=== PATIENT | female | born 1990 | race Caucasian/White ===

== ENCOUNTER 2018-01-01 23:15 | Inpatient (IN) | payer SELFPAY ==
[2018-01-01 23:58] LABS: ABS Basophils 0 10^3/ul (0-0.2); ABS Eosinophils 0.2 10^3/ul (0-0.6); ABS Lymphocytes 3.2 10^3/ul (1.0-4.8); ABS Monocytes 0.4 10^3/ul (0-0.8); ABS Neutrophils 4.3 10^3/ul (1.5-7.7); ABS Nucleated RBC 0 10^3/ul; Eosinophil % 2.1 % (0-6); Hematocrit 37 % (35-47); Hemoglobin 12.6 g/dl (12.0-16.0); Lymphocyte % 39.6 % (25-47); Mean Corpuscular HGB Conc 34 g/dl (31-36); Mean Corpuscular Hemoglobin 29 pg (27-31); Mean Corpuscular Volume 86 fL (80-97); Mean Platelet Volume 6.9 um3 (7.4-10.4); Nucleated Red Blood Cells % 0.1; Platelet Count 330 10^3/ul (150-450); Red Blood Count 4.33 10^6/ul (4.00-5.40); Red Cell Distribution Width 12 % (10.5-15); White Blood Count 8.1 10^3/ul (3.5-10.8)
[2018-01-02 00:02] LABS: Urine Appearance Clear; Urine Blood Negative (Negative); Urine Color Straw; Urine Ketones Negative (Negative); Urine Protein Negative (Negative); Urine Specific Gravity 1.002 (1.010-1.030); Urine Urobilinogen Negative (Negative)
[2018-01-02 00:09] LABS: EGFR Non-African American 104.6 (>60)
[2018-01-02] MEDS ORDERED: Tetan/Diph/Pertus SYR(Tdap)* 0.5 ML SYR(BOOSTRIX) use SYR IM ONE (00:24)
--- NOTE | 2018-01-02 06:28 | ED ---
Damaso Ramirez Tiffany, scribed for Ellis Guerrero MD on 01/02/18 at 0047 . Psychiatric Complaint - HPI Summary HPI Summary: 27 year old F presenting to [facility] complains of worsening suicidal ideation for the last 3 weeks. Symptoms aggravated by nothing. Symptoms alleviated by nothing. Patient reports superficial lacerations to the left arm. She is tearful but cooperative. She can't remember when her last tetanus shot was. Patient moved to [place] 3 years ago from [place]. 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 She lives with her boyfriend and two roommates. She has no therapist. Hx suicidal attempt. Denies hx inpatient psych treatment. No hx cutting. - History Of Current Complaint Chief Complaint: EDMentalHealth Time Seen by Provider: 01/02/18 00:14 Hx Obtained From: Patient Onset/Duration: Lasting Weeks - 3, Still Present Timing: Constant Aggravating Factor(s): Nothing Alleviating Factor(s): Nothing Has Suicidal: Reports: Thoughts, Has Prior Attempt(s) - Allergies/Home Medications Allergies/Adverse Reactions: Allergies Allergy/AdvReac Type Severity Reaction Status Date / Time Sulfa (Sulfonamide Allergy Unknown Verified 01/01/18 23:22 Antibiotics) Reaction Details Home Medications: Home Medications Unobtainable 01/02/18 [History Confirmed 01/02/18] PMH/Surg Hx/FS Hx/Imm Hx Previously Healthy: No - hx rosation Psychiatric History: Reports: Hx Depression, Hx Suicide Attempt - Surgical History Surgery Procedure, Year, and Place: none Infectious Disease History: No Infectious Disease History: Denies: Traveled Outside the [place] in Last 30 Days - Family History Known Family History: Positive: Other - depression, anxiety - Social History Alcohol Use: Occasionally Hx Substance Use: No Substance Use Type: Reports: None Hx Tobacco Use: Yes - reports vaping Smoking Status (MU): Former Smoker Review of Systems Positive: Other - superficial lacerations to left arm Positive: Other - suicidal ideation, she is tearful but cooperative All Other Systems Reviewed And Are Negative: Yes Physical Exam - Summary Physical Exam Summary: Appearance: Well appearing, no pain distress Skin: There is multiple horizontal abrasions to the left forearm that is not actively bleeding. There is no breaking of the skin. Head/face: facial redness from rosation Eyes: EOMI, KEKE ENT: normal Neck: supple, non-tender Respiratory: CTA, breath sounds present Cardiovascular: RRR, pulses symmetrical Abdomen: non-tender, soft Bowel Sounds: present Musculoskeletal: normal, strength/ROM intact Neuro: normal, sensory motor intact, A&Ox3 Triage Information Reviewed: Yes Vital Signs On Initial Exam: Initial Vitals Temp Pulse Resp BP Pulse Ox 98.9 F 106 20 138/107 97 01/01/18 23:17 01/01/18 23:17 01/01/18 23:17 01/01/18 23:17 01/01/18 23:17 Vital Signs Reviewed: Yes Diagnostics - Vital Signs Vital Signs Temp Pulse Resp BP Pulse Ox 01/01/18 23:17 98.9 F 106 20 138/107 97 - Laboratory Lab Results: Lab Results 01/01/18 01/01/18 01/01/18 Range/Units 23:39 23:39 23:53 WBC 8.1 (3.5-10.8) 10^3/ul RBC 4.33 (4.00-5.40) 10^6/ul Hgb 12.6 (12.0-16.0) g/dl Hct 37 (35-47) % MCV 86 (80-97) fL MCH 29 (27-31) pg MCHC 34 (31-36) g/dl RDW 12 (10.5-15) % Plt Count 330 (150-450) 10^3/ul MPV 6.9 L (7.4-10.4) um3 Neut % (Auto) 53.3 (38-83) % Lymph % (Auto) 39.6 (25-47) % [place] % (Auto) 4.5 (0-7) % Eos % (Auto) 2.1 (0-6) % Baso % (Auto) 0.5 (0-2) % Absolute Neuts (auto) 4.3 (1.5-7.7) 10^3/ul Absolute Lymphs (auto) 3.2 (1.0-4.8) 10^3/ul Absolute Monos (auto) 0.4 (0-0.8) 10^3/ul Absolute Eos (auto) 0.2 (0-0.6) 10^3/ul Absolute Basos (auto) 0 (0-0.2) 10^3/ul Absolute Nucleated RBC 0 10^3/ul Nucleated RBC % 0.1 Sodium 139 (135-145) mmol/L Potassium 3.8 (3.5-5.0) mmol/L Chloride 105 (101-111) mmol/L Carbon Dioxide 26 (22-32) mmol/L Anion Gap 8 (2-11) mmol/L BUN 6 (6-24) mg/dL Creatinine 0.68 (0.51-0.95) mg/dL Est GFR ( Amer) 126.6 (>60) Est GFR (Non-Af Amer) 104.6 (>60) BUN/Creatinine Ratio 8.8 (8-20) Glucose 103 H (70-100) mg/dL Calcium 9.1 (8.6-10.3) mg/dL Total Bilirubin 0.20 (0.2-1.0) mg/dL AST 15 (13-39) U/L ALT 10 (7-52) U/L Alkaline Phosphatase 43 (34-104) U/L Total Protein 7.9 (6.4-8.9) g/dL Albumin 4.8 (3.2-5.2) g/dL Globulin 3.1 (2-4) g/dL Albumin/Globulin Ratio 1.5 (1-3) TSH Pending Beta HCG, Quant < 0.60 mIU/mL Urine Color Straw Urine Appearance Clear Urine pH 6.0 (5-9) Ur Specific [place] 1.002 L (1.010-1.030) Urine Protein Negative (Negative) Urine Ketones Negative (Negative) Urine Blood Negative (Negative) Urine Nitrate Negative (Negative) Urine Bilirubin Negative (Negative) Urine Urobilinogen Negative (Negative) Ur Leukocyte Esterase Negative (Negative) Urine Glucose Negative (Negative) Salicylates < 2.50 (<30) mg/dL Acetaminophen < 15 mcg/mL Serum Alcohol 289 H (<10) mg/dL Result Diagrams: 01/01/18 23:39 01/01/18 23:39 Lab Statement: Any lab studies that have been ordered have been reviewed, and results considered in the medical decision making process. - EKG 00:45 Cardiac Rate: NL - 97 BPM EKG Rhythm: Sinus Rhythm EKG Interpretation: Nml axis. Nml interval. Nonspecific ST. Course/Dx - Course Course Of Treatment: Patient with high alcohol level likely exacerbating her chronic depression. She has self injury today consisting of very superficial abrasions. Tetanus was updated. There are no wounds requiring repair. She will require sobering prior to mental health evaluation. She was observed through the night without any deterioration. - Differential Dx/Clinical Impression Provider Diagnosis: Alcohol intoxication, Substance induced mood disorder Discharge - Sign-Out/Discharge Documenting (check all that apply): Sign-Out Patient Signing out patient TO: Medhat Anderson - Awaiting MHE, pending dispo - Discharge Plan Condition: Fair Referrals: No Primary Care Phys,NOPCP [Primary Care Provider] - - Billing Disposition and Condition Condition: FAIR The documentation as recorded by the Damaso santos Tiffany accurately reflects the service I personally performed and the decisions made by , Ellis Guerrero MD.
[2018-01-02] MEDS ORDERED: Ibuprofen TAB* 600 MG PO ONE (10:34)
--- NOTE | 2018-01-02 12:17 | PN ---
ED Flex Patient Progress Note Date of Service: 01/02/18 Subjective: This is a 27 year-old F who is pending admission to [facility] secondary to suicidal ideation, plans to cut her writs or to overdose and inability to contract for safety if discharged. Pt maintains that she is suicidal. Objective: Alert, oriented time 4, good eye contact, calm, cooperative, constricted range of affect, euthymic mood, she endorses SI, denies HI or urges for sib. Assessment: Alcohol use disorder; r/o MDD. Plan: Pending psychiatric admit here in the [facility] when bed becomes available. Vital Signs Temp Pulse Resp BP Pulse Ox 98.1 F 95 16 124/84 100 01/02/18 08:27 01/02/18 08:27 01/02/18 08:27 01/02/18 08:27 01/02/18 08:27 Lab Results - Entire Visit 01/01/18 01/01/18 01/01/18 23:53 23:53 23:39 WBC RBC Hgb Hct MCV MCH MCHC RDW Plt Count MPV Neut % (Auto) Lymph % (Auto) [place] % (Auto) Eos % (Auto) Baso % (Auto) Absolute Neuts (auto) Absolute Lymphs (auto) Absolute Monos (auto) Absolute Eos (auto) Absolute Basos (auto) Absolute Nucleated RBC Nucleated RBC % Sodium 139 Potassium 3.8 Chloride 105 Carbon Dioxide 26 Anion Gap 8 BUN 6 Creatinine 0.68 Est GFR ( Amer) 126.6 Est GFR (Non-Af Amer) 104.6 BUN/Creatinine Ratio 8.8 Glucose 103 H Calcium 9.1 Total Bilirubin 0.20 AST 15 ALT 10 Alkaline Phosphatase 43 Total Protein 7.9 Albumin 4.8 Globulin 3.1 Albumin/Globulin Ratio 1.5 TSH 3.16 Beta HCG, Quant < 0.60 Urine Color Straw Urine Appearance Clear Urine pH 6.0 Ur Specific [place] 1.002 L Urine Protein Negative Urine Ketones Negative Urine Blood Negative Urine Nitrate Negative Urine Bilirubin Negative Urine Urobilinogen Negative Ur Leukocyte Esterase Negative Urine Glucose Negative Salicylates < 2.50 Urine Opiates Screen None detected Acetaminophen < 15 Ur Barbiturates Screen None detected Ur Phencyclidine Scrn None detected Ur Amphetamines Screen None detected U Benzodiazepines Scrn None detected Urine Cocaine Screen None detected U Cannabinoids Screen None detected Serum Alcohol 289 H 01/01/18 23:39 WBC 8.1 RBC 4.33 Hgb 12.6 Hct 37 MCV 86 MCH 29 MCHC 34 RDW 12 Plt Count 330 MPV 6.9 L Neut % (Auto) 53.3 Lymph % (Auto) 39.6 [place] % (Auto) 4.5 Eos % (Auto) 2.1 Baso % (Auto) 0.5 Absolute Neuts (auto) 4.3 Absolute Lymphs (auto) 3.2 Absolute Monos (auto) 0.4 Absolute Eos (auto) 0.2 Absolute Basos (auto) 0 Absolute Nucleated RBC 0 Nucleated RBC % 0.1 Sodium Potassium Chloride Carbon Dioxide Anion Gap BUN Creatinine Est GFR ( Amer) Est GFR (Non-Af Amer) BUN/Creatinine Ratio Glucose Calcium Total Bilirubin AST ALT Alkaline Phosphatase Total Protein Albumin Globulin Albumin/Globulin Ratio TSH Beta HCG, Quant Urine Color Urine Appearance Urine pH Ur Specific [place] Urine Protein Urine Ketones Urine Blood Urine Nitrate Urine Bilirubin Urine Urobilinogen Ur Leukocyte Esterase Urine Glucose Salicylates Urine Opiates Screen Acetaminophen Ur Barbiturates Screen Ur Phencyclidine Scrn Ur Amphetamines Screen U Benzodiazepines Scrn Urine Cocaine Screen U Cannabinoids Screen Serum Alcohol
--- NOTE | 2018-01-02 22:17 | ED ---
Nestor Ramirez Jade, scribed for Alfred Bates on 01/02/18 at 2213 . Progress - Progress Note Progress Note: Pt is being admitted to the hospital for depression and suicidal ideation. - Consult/PCP Time Called: 08:29 Course/Dx - Diagnoses Provider Diagnoses: Depression, Suicidal ideation Discharge - Sign-Out/Discharge Documenting (check all that apply): Discharge/Admit/Transfer - Admit, Receiving Sign-Out Receiving patient FROM: Ellis Guerrero - Discharge Plan Condition: Fair Disposition: ADMITTED TO [facility] Referrals: [facility] [Outside] The documentation as recorded by the Nestor santos Jade accurately reflects the service I personally performed and the decisions made by Jana espinoza Emmanuel.
[2018-01-03] MEDS ORDERED: Acetaminophen TAB* 325 MG PO PRN (01:43)
[2018-01-03] MEDS ORDERED: Al Hydrox/Mg Hydrox/Simet LIQ* 30 ML UDC PO PRN (01:43)
[2018-01-03] MEDS ORDERED: Mouth Piece, Nicotine* 1 EACH CARTRIDGE INH SCH (01:43)
[2018-01-03] MEDS: Nicotine GUM* 2 MG PO PRN ×4 (09:36→21:23)
[2018-01-03] MEDS: Vitamin THERAPEUTIC TAB PO SCH (09:36)
[2018-01-03] MEDS ORDERED: Mouth Piece, Nicotine* 1 EACH CARTRIDGE ONE (10:42)
[2018-01-03] MEDS: Nicotine Inhaler* 10 MG AMP INH PRN ×3 (10:43→20:21)
[2018-01-03] MEDS ORDERED: Zolpidem TAB* 5 MG PO ONE (18:03)
--- NOTE | 2018-01-03 19:52 | HP ---
HISTORY AND PHYSICAL: DATE OF ADMISSION: 01/02/18 IDENTIFYING DATA: Nneka is a 27-year-old white female with no prior history of psychiatric hospitalizations or treatments, was brought into the emergency room by her partner due to an attempt to cut her arm with an intention to commit suicide. CHIEF COMPLAINT: "I have been depressed, anxious, and suicidal for the last few weeks." HISTORY OF PRESENT ILLNESS: Nneka reports that she has been depressed off and on for a while, which got worse during the last 3 weeks. She has been feeling sad, crying frequently, lost some interest in social activities, feels fearful and anxious all the time even at home. She also feels helpless, hopeless, worthless, and guilty. Feels guilty because of the way her life has become now. She has also been drinking at least 3 days out of a week somewhere between 2 to 5 beers. Yesterday, she drank 4 or 5 beers and lost control of her behavior. She had tried to cut her arm with a kitchen knife. Fortunately, the knife was not sharp enough, so she just had few superficial cuts on her left arm. Her partner was frightened and picked her up to bring her to the emergency room, where she was found to be intoxicated with a blood alcohol level of close to 300. At this time, she is visibly depressed and sad but denies any current thoughts of hurting herself. She is also denying any manic or hypomanic symptoms; however, she reports that there are times that she feels very happy. Her energy level is high, motivation is very high. Her mind races and she has difficulty falling asleep, but that does not last that long and she crashes into her depressive episode. She never experienced any hallucinations or delusions. She was unable to identify any new or added stress. Reports that her relationship is going great. She has good financial support, place to stay , and has a partner who is very supportive. PAST PSYCHIATRIC HISTORY: Unremarkable. PAST MEDICAL HISTORY: Unremarkable. ALLERGIES: SULFA DRUGS. SUBSTANCE ABUSE HISTORY: As mentioned in the HPI, she drinks 3 days out of a week and drinks a couple of beers to 5 beers and the beers have higher alcohol content than the normal regular beers available in the market. She denies ever getting seriously intoxicated or have blackouts. She reports that she drinks at home with her partner mostly and goes to sleep after she drinks. However, she does not really sleep very well and wakes up frequently the night that she is drinking. FAMILY HISTORY: Remarkable for her mother who was diagnosed with schizophrenia and in an institution in [place]. She has an older brother who is normal. Denies any other family members who may have mental illness. 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 She is currently involved in a significant relationship with her current boyfriend who is very supportive of her. They live in a house with 2 other roommates who could be loud at times when they are drunk. She denies any legal problems. PHYSICAL EXAMINATION GENERAL: Nneka does not appear to be in any kind of physical distress, although she appears very nervous and tremulous. Her appearance is fairly groomed, appropriately dressed, healthy-appearing white female, in no distress at the time of examination. VITAL SIGNS: Today shows a blood pressure of 130/90, pulse 69, temperature 97.7 , respirations 20, O2 sat 100% on room air. HEENT: Head: Atraumatic, normocephalic, long hair. Eyes: EOMI, PERRLA. Ears : Clean ear canals with intact eardrum. NECK: Supple. Midline trachea. No lymphadenopathy or thyromegaly. CHEST: Normal breath sounds bilaterally. No added sounds or abnormal sounds. CARDIOVASCULAR: Regular heart rate and rhythm. S1 and S2 only. No gallops or murmurs. Pulses present in all 4 extremities. ABDOMEN: Flat, soft, nontender. No organomegaly. Positive bowel sounds in all quadrants. MUSCULOSKELETAL: Normal strength. ROM intact. NEUROLOGICAL: Grossly normal. Cranial nerves II through XII. She is alert and oriented to time, place, and person. LABORATORY DATA: Labs included CBC with differential, CMP, and tox screen. CBC shows a WBC of 8.1, hemoglobin 12.6, hematocrit 37, platelet count 330,000. CMP shows serum sodium level of 139, potassium 3.8. Chloride 105, carbon dioxide 26, BUN 6, creatinine 0.68. GFR 104.6. Rest of the report is within normal range. Urinalysis unremarkable. Tox screen shows a serum alcohol level of 289 at the time when she was in the emergency room. IMAGING: EKG: Sinus rhythm. MENTAL STATUS EXAM: Nneka is a healthy-appearing, average height white female who is appropriately dressed and fairly groomed with good personal hygiene. She is alert and oriented to time, place, and person. Makes fair eye contact. She is tearful during the entire evaluation. Describes her mood as sad. Observed affect is dysphoric and tearful. Speech is normal in all spheres. Thought process is logical and goal directed. Thought content is devoid of any delusions or obsessions. She denies any suicidal or homicidal ideations at this time. Also, denies any perceptual disturbances. Her intelligence appears to be average as evidence by her vocabulary, education, and fund of knowledge. Memory functions are intact in all spheres. Insight and judgment appears to be fair to good. SUMMARY: This 27-year-old female with no prior history of treatment for mental illness, but a positive family history of mental illness in her mother who has been experiencing mood symptoms for quite a while, mostly depressive symptoms with intermittent mild to moderate hypomanic symptoms, has been more depressed lately and tried to hurt herself last evening with an intention to commit suicide. She has also been drinking at least 3 days out of the week, 2 to 5 beers with high alcohol content. DIAGNOSTIC IMPRESSION: MENTAL HEALTH DIAGNOSIS: Unspecified mood disorder, rule out major depressive disorder, rule out bipolar disorder. PHYSICAL HEALTH DIAGNOSIS: None. TREATMENT RECOMMENDATIONS: Nneka will remain hospitalized on behavioral health science unit for her safety, diagnostic clarification, and stabilization of current depressive episode. Her code status will be full. Supportive, milieu, individual, and group therapy will be initiated. I have discussed multiple treatment options for her with risks, benefits, and alternatives to all of them. She is willing to consider taking medication to help her mood and depression. Hence, I am going to prescribe her low doses of Zoloft and monitor her closely to see if that switches her towards hypomania or sebas and rest of the psychopharmacological management will be deferred to her assigned psychiatrist on the unit. If she is willing and her symptoms worsen towards hypomania or sebas, I will recommend lithium if she can stop drinking, otherwise Depakote in the future. [id number]/[facility] #: [id number] HELEN HAYES HOSPITALRavinder
[2018-01-04] MEDS: Vitamin THERAPEUTIC TAB PO SCH (08:32)
[2018-01-04] MEDS: Sertraline* 25 MG TAB PO SCH (08:32)
[2018-01-04] MEDS: Nicotine GUM* 2 MG PO PRN ×7 (08:33→23:15)
[2018-01-04] MEDS: Nicotine Inhaler* 10 MG AMP INH PRN ×7 (08:33→23:15)
[2018-01-04] MEDS ORDERED: diPHENhydraMINE PO* 25 MG ONE (23:17)
[2018-01-04] MEDS ORDERED: diPHENhydraMINE PO* 25 MG PO PRN (23:22)
[2018-01-05] MEDS: Sertraline* 25 MG TAB PO SCH (08:38)
[2018-01-05] MEDS: Vitamin THERAPEUTIC TAB PO SCH (08:38)
[2018-01-05] MEDS: Nicotine Inhaler* 10 MG AMP INH PRN ×7 (08:39→23:55)
[2018-01-05] MEDS: Nicotine GUM* 2 MG PO PRN ×7 (08:39→23:55)
--- NOTE | 2018-01-05 11:57 | PN ---
MHU: Group Therapy Note - Service Type Service Type: [id number] Group Psychotherapy - Cognitive Behavioral Group Therapy ( CBT):Patient was attentive and participatory in CBT programming this morning, and remained in good behavioral control. Patient expressed positive insights regarding relevant treatment interventions and goals.
--- NOTE | 2018-01-05 13:02 | PN ---
Subjective - Subjective Date of Service: 01/05/18 Service Type: [id number] Hosp care 25 min moderate complexity Subjective: Jocelin is pleasant to talk to and can describe her disbelief that she tried to harm herself very well. She acknowledges that she had too much to drink and that she stopped herself before seriously cutting herself. She finds that to be reassuring, that she was able to stop herself and that it shows insight that she needed help. We discussed the possibility of bipolar disorder, but she does not seem to fit those criteria as she has never been manic and doesn't have manic symptoms. Still, she is bright and energetic on the surface. We talk about additional medication, such as increasing the dose of Zoloft. Objective - Appearance Appearance: Healthy Appearing Dysmorphic Features: No Hygiene: Normal Grooming: Well Kept - Behavior Psychomotor Activities: Normal Exhibits Abnormal Movement: No - Attitude and Relatedness Attitude and Relatedness: Well Related Eye Contact: Good - Speech Quality: Unpressured Latencies: Normal Quantity: Appropriate - Mood Patient's Decription of Mood: "Good" - Affect Observed Affect: Good Affect Consistent with: Euthymia - Thought Process Patient's Thought Process: Coherent Thought Content: No Passive Wish, No Suicidal Planning, No Homicidal Ideation, No Paranoid Ideation - Sensorium Experiencing Hallucinations: No, Sensorium is Clear Type of Hallucinations: Visual: No, Auditory: No, Command: No - Level of Consciousness Level of Consciousness: Alert Orientation: Yes Intact, Yes Orientated to Time, Yes Orientated to Place, Yes Orientated to Person - Impulse Control Impulse Control: Intact - Insight and Judgement Insight and Judgement: Good - Group Participation Particating in Group Activities: Yes - Medication Management Medication Management Adherence: Yes - Additional Observations Comments: Jocelin is doing fine today. She shows good insight into what brought her here. Generally, she is doing well, demonstrating excellent thought processes and showing regret for her prior actions. Assessment - Assessment Merits Inpatient Hospitalization: For Immediate Safety, For Stabilization Inpatient DSM-V Dx: F33.1 Clinical Impression: Jocelin is a 27-year-old woman who has a full tiime job she enjoys and a boyfriend she has a good relationship with. She discusses that stressors at home are difficult for her to manage and being here in the hospital has made that clear to her. She anticipates making new choices in the future that will decrease stress, improve mood, and increase higher quality sleep. Plan - Plan Treatment Plan: Name: JOCELIN KIRKPATRICK Birthdate: 1990 [id number] Jocelin will take Ativan 0.5 mg at bedtime PRN insomnia. We will increase Zoloft to 50 mg. She will work on improving her home situation so she no longer has to live with roommates other than her boyfriend. Continued Medication Management: Different Medication Medications: Current Medications Acetaminophen (Tylenol Tab*) 650 mg PO Q4H PRN PRN Reason: PAIN or TEMP > 101 F Al Hydrox/Mg Hydrox/Simethicone (Maalox Plus*) 30 ml PO Q4H PRN PRN Reason: INDIGESTION Device (Nicotine Mouth Piece*) 1 each INH .[facility] Last Admin: 01/03/18 10:44 Dose: 1 each Diphenhydramine HCl (Benadryl Po*) 25 mg PO BEDTIME PRN PRN Reason: INSOMNIA Multivitamins (Theragran Tab*) 1 tab PO DAILY [facility] Last Admin: 01/05/18 08:38 Dose: 1 tab Nicotine (Nicotine Inhaler*) 10 mg INH Q2H PRN PRN Reason: CRAVING Last Admin: 01/05/18 10:59 Dose: 10 mg Nicotine Polacrilex (Nicotine Gum*) 2 mg PO Q2H PRN PRN Reason: CRAVING Last Admin: 01/05/18 10:59 Dose: 2 mg Sertraline HCl (Zoloft*) 25 mg PO DAILY [facility] Last Admin: 01/05/18 08:38 Dose: 25 mg
[2018-01-05] MEDS ORDERED: Sertraline* 25 MG TAB PO ONE (13:15)
[2018-01-05] MEDS ORDERED: LORazepam TAB(*) 0.5 MG PO ONE (21:00)
[2018-01-06] MEDS: Vitamin THERAPEUTIC TAB PO SCH (08:09)
[2018-01-06] MEDS: Nicotine GUM* 2 MG PO PRN ×2 (08:10→10:21)
[2018-01-06] MEDS: Nicotine Inhaler* 10 MG AMP INH PRN ×2 (08:10→10:21)
[2018-01-06 08:22] VITALS: BP 126/85
[2018-01-06] MEDS ORDERED: Sertraline* 50 MG TAB PO SCH (09:00)
--- NOTE | 2018-01-06 20:28 | DS ---
CC: [facility]* DISCHARGE SUMMARY: DATE OF ADMISSION: 01/02/18 DATE OF DISCHARGE: 01/06/18 SUPERVISING PHYSICIAN: Jonn Lea MD* (dictated by Lainey Martinez NP). DIAGNOSIS: [place] I: Major depressive disorder, moderate, and anxiety disorder. CONDITION AT THE TIME OF DISCHARGE: Improved, psychiatrically cleared, stable. Participated in groups, social with peers. Her family is agreeable to discharge. She has done well here psychiatrically. She tolerated sertraline addition very well. She will be attending [facility]. MENTAL STATUS EXAMINATION: At the time of discharge, the patient is calm, cooperative, makes great eye contact. She is alert and oriented x3. Her grooming is good. Her speech pace is normal. Her thought processes are logical. She is not psychotic, not delusional. She denies AH, VH, SI, and HI. Insight and judgment are very good. She is willing to follow up and she is urged to see a therapist. DISCHARGE INSTRUCTIONS TO THE PATIENT: A. Medications: 1. Lorazepam 0.5 once at bedtime daily. 2. Sertraline 50 mg daily. B. Diet is regular. C. Activities: As tolerated. Nneka is a smoker, but she has declined a referral to the Smokers' Quitline at this time. There are no studies pending at the time of discharge. D. Followup care: She has appointments with [facility]. E. Substance abuse followup: Not indicated. HOSPITAL COURSE: Part A: Chief complaint: "I've been depressed, anxious and suicidal for the last few weeks." Nneka reports that she has been depressed off and on for a while, which got worse during the last 3 weeks. She has been feeling sad, crying frequently, lost some interest in social activities, feels fearful and anxious all the time even at home. She also feels helpless, hopeless, worthless, and guilty. Feels guilty because of the way her life has become now. She has also been drinking at least 3 days out of a week somewhere between 2 to 5 beers. Yesterday, she drank 4 or 5 beers and lost control of her behavior. She has tried to cut her arm with a kitchen knife. Fortunately, the knife was not sharp enough, so she just had the few superficial cuts on her left arm. Her partner was frightened and picked her up to bring her to the emergency room where she was found to be intoxicated with a blood level of close to 300. At this time, she is visibly depressed and sad, but denies any current thoughts of hurting herself. She is also denying any manic or hypomanic symptoms; however, she reports that there are times that she feels very happy. Her energy level is high, motivation is very high. Her mind races and she has difficulty falling asleep, but that does not last long as she crashes into her depressive episode. She never experienced any hallucinations or delusions. She was unable to identify any new or added stress. She reports that her relationship is going great. She has good financial support, a place to stay, and has a partner who is very supportive. Part B: Psychiatric treatment was rendered. The patient was admitted to the adult behavioral unit and placed on 15-minute checks for safety. Dorcas did well on the unit and went to groups. She interacted with peers well. She tolerated sertraline's addition and Ativan's addition at bedtime. There was a question of whether she had bipolar disorder. There is no history of manic episodes. In fact, some of the racing thoughts and higher energy can easily be attributed to anxiety disorder. She and her boyfriend were agreeable to discharge. There were no consults entered. She is much improved and she is eager to leave. LAINEY MARTINEZ, AJ [id number]/CPS #: [id number] K[place]LEY
[2018-01-06] MEDS ORDERED: LORazepam TAB(*) 0.5 MG PO ONE (21:00)
== END 2018-01-06 12:15 | disposition home or self-care (01) | DRG 885 ==
LOC: ED 23:15 → BSU 01-02 22:38
PROVIDERS: ADMIT Psychiatry & Neurology Psychiatry; ATTEND Psychiatry & Neurology Psychiatry
PROC: GZHZZZZ Group Psychotherapy (ICD-10-PCS; principal; 2018-01-05)
DX: F33.1 Major depressive disorder, recurrent, moderate (principal); S51.812A Laceration without foreign body of left forearm, initial encounter; G47.00 Insomnia, unspecified; F10.929 Alcohol use, unspecified with intoxication, unspecified; Y90.8 Blood alcohol level of 240 mg/100 ml or more; F41.9 Anxiety disorder, unspecified; Z91.5 Personal history of self-harm; Z88.2 Allergy status to sulfonamides; Z81.8 Family history of other mental and behavioral disorders; Z87.891 Personal history of nicotine dependence; X83.8XXA Intentional self-harm by other specified means, initial encounter; Y92.009 Unspecified place in unspecified non-institutional (private) residence as the place of occurrence of the external cause
CPT/HCPCS: 36415; 80053; 80061; 80307; 80320; 80329; 81003; 83036; 84443; 84702; 85025; 90715; 90853; 93005; 99222; 99232; 99284; A9270-GY; G0480

== ENCOUNTER 2018-12-18 16:15 | Emergency (ER) | payer SELFPAY ==
[2018-12-18 16:35] VITALS: BP 115/82
--- NOTE | 2018-12-18 16:40 | UC ---
Bite Injury/Animal HPI - HPI Summary HPI Summary: 28-year-old female who got bitten by a rat on her left and right index fingers while she was trying to clean out a house of a person who had rats "all over the place". 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 She basically came here for an antibiotic. At the time of the injury she did irrigate the wounds thoroughly with alcohol. - History of Current Complaint Chief Complaint: UCBiteInjury Stated Complaint: RAT BITE Time Seen by Provider: 12/18/18 16:37 Hx Obtained From: Patient Hx Last Menstrual Period: 12/18/18 ?: No Severity Currently: Mild Severity Initially: Mild Pain Intensity: 7 Onset/Duration: Sudden Onset, Other - Injury happened approximately 45 minutes prior to arrival. Type of Bite: Animal - The bite was from a rat that had some babies. 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 Has Animal Been Immunized?: No Character: Abrasion/Laceration - Very small lacerations on the left and right index fingers approximately 3 mm in length. Bleeding is controlled. Aggravating Factor(s): Nothing Alleviating Factor(s): Nothing Associated Signs And Symptoms: Positive: Negative Hx of Bite: Provoked by: - The rat was the female guarding baby rats. Animal Available for Observation: No Animal Control Notified: Yes - Allergies/Home Medications Allergies/Adverse Reactions: Allergies Allergy/AdvReac Type Severity Reaction Status Date / Time ibuprofen AdvReac See Comment Verified 12/18/18 16:31 Home Medications: Home Medications ALPRAZolam [Xanax] 3 mg PO DAILY PRN 12/18/18 [History Confirmed 12/18/18] Fluoxetine HCl [Prozac] 20 mg PO DAILY 12/18/18 [History Confirmed 12/18/18] [place] Carbonate ER (NF) 900 mg PO DAILY 12/18/18 [History Confirmed 12/18/18] Quetiapine Fumarate [Seroquel 50 mg tab] 1 tab PO DAILY PRN 12/18/18 [History Confirmed 12/18/18] PMH/Surg Hx/FS Hx/Imm Hx Previously Healthy: Yes - patient has had rabies immunization as part of her employment - Surgical History Surgical History: None Surgery Procedure, Year, and Place: none - Family History Known Family History: Positive: Other - depression, anxiety - Social History Occupation: Employed Full-time Alcohol Use: None Substance Use Type: None Smoking Status (MU): Former Smoker Type: eCigarettes Amount Used/How Often: pt has used no tobacco products in last 30 days. - Immunization History Most Recent Influenza Vaccination: unable to recall Most Recent Pneumonia Vaccination: NA Review of Systems All Other Systems Reviewed And Are Negative: Yes Skin: Positive: Other - 3 small lacerations on left and right index fingers bleeding is controlled. Musculoskeletal: Positive: Other: - Last tetanus was one year ago. Is Patient Immunocompromised?: No Physical Exam Triage Information Reviewed: Yes Appearance: Well-Appearing, No Pain Distress, Well-Nourished Vital Signs: Initial Vital Signs Temp 98.3 F 12/18/18 16:24 Pulse 80 12/18/18 16:24 Resp 18 12/18/18 16:24 BP 115/82 12/18/18 16:24 Pulse Ox 100 12/18/18 16:24 Vital Signs Reviewed: Yes Musculoskeletal: Positive: Strength Intact, ROM Intact, Other: - Good peripheral pulses neuro sensation capillary refill, full range of motion with good finger strength with flexion and extension against resistance. Neurological: Positive: Alert, Muscle Tone Normal Psychological Exam: Normal Skin: Positive: Other - Very small lacerations to the left and right index fingers approximately 3 mm in length. Bleeding is controlled. Bite Injury Course/Dx - Course Course Of Treatment: The bleeding is controlled here. The patient had already copiously irrigated the lacerations. Band-Aids were applied. She is up-to-date on her rabies immunization as well as her tetanus immunization. I'm giving her a prescription for Augmentin 875 mg by mouth twice a day 10 days however I did advise her that she could wait and see what her fingers look like in the morning and if they look like they're red, swollen, erythematous then she can start the Augmentin however she could continue with warm salt water soaks and observe for any infection and only start the Augmentin if she thinks is getting infected. Patient is agreeable to this plan of action. - Differential Dx/Diagnosis Provider Diagnosis: Rat bite Discharge - Sign-Out/Discharge Documenting (check all that apply): Patient Departure All imaging exams completed and their final reports reviewed: No Studies - Discharge Plan Condition: Fair Disposition: HOME Prescriptions: Amoxicillin/Clavulanate TAB* [Augmentin TAB 875*] 875 mg PO BID 10 Days #20 tab Patient Education Materials: Animal Bite (ED) Referrals: No Primary Care Phys,NOPCP [Primary Care Provider] - [facility] [Outside] Additional Instructions: Warm salt water soaks several times a day. If the areas appear to be getting infected such as hot, red, tender, swollen, pus drainage, red streaks then start the antibiotic and take it with food twice a day for 10 days. Follow-up with your primary care provider if no improvement in 3 or 4 days. Change the Band-Aids daily. - Billing Disposition and Condition Condition: FAIR Disposition: Home
== END 2018-12-18 16:46 | disposition home or self-care (01) ==
LOC: UCEAST 16:15
DX: S61.251A Open bite of left index finger without damage to nail, initial encounter (principal); S61.250A Open bite of right index finger without damage to nail, initial encounter; W53.11XA Bitten by rat, initial encounter; Y93.H3 Activity, building and construction; Y92.009 Unspecified place in unspecified non-institutional (private) residence as the place of occurrence of the external cause; Z87.891 Personal history of nicotine dependence
CPT/HCPCS: 99212; G0463

== ENCOUNTER 2019-02-17 17:28 | Inpatient (IN) | payer SELFPAY ==
--- NOTE | 2019-02-17 18:06 | ED ---
Psychiatric Complaint - HPI Summary HPI Summary: A 28 y/o female presents to [facility] with a chief complaint of SI. She reports self harm by cutting her left arm and left hip for the past week. She reports some new cuts on her left forearm and claims that some of her old more healed cut wounds have re-opened. She denies any other PMHx. She takes [place], Seroquel, Fluoxetine and Xanax. She was hospitalized last January. She reports being a manic bipolar. She says that she did not notice that she was cutting herself. - History Of Current Complaint Chief Complaint: EDMentalHealth Time Seen by Provider: 02/17/19 17:47 Hx Obtained From: Patient Hx Last Menstrual Period: 12/18/18 Onset/Duration: Sudden Onset, Lasting Hours, Still Present Timing: Intermittent Episode Lasting - Pt reports that she is not aware when she is cutting herself Severity Initially: Mild Severity Currently: Mild Character: Manic Aggravating Factor(s): Nothing Alleviating Factor(s): Nothing Associated Signs And Symptoms: Positive: Negative Related History: Positive For: Prior Psychiatric Issues Has Suicidal: Reports: Thoughts Has Homicidal: Denies: Thoughts - Allergies/Home Medications Allergies/Adverse Reactions: Allergies Allergy/AdvReac Type Severity Reaction Status Date / Time ibuprofen AdvReac See Comment Verified 02/17/19 17:35 PMH/Surg Hx/FS Hx/Imm Hx Endocrine/Hematology History: Denies: Hx Diabetes Cardiovascular History: Denies: Hx Hypertension Sensory History: Denies: Hx Contacts or Glasses, Hx Hearing Aid Opthamlomology History: Denies: Hx Contacts or Glasses Psychiatric History: Reports: Hx Depression, Hx Suicide Attempt Denies: Hx Eating Disorder, Hx of Violent Episodes Against Others - Surgical History Surgery Procedure, Year, and Place: none Infectious Disease History: No Infectious Disease History: Denies: Traveled Outside the [place] in Last 30 Days - Family History Known Family History: Positive: Other - depression, anxiety - Social History Alcohol Use: None Hx Substance Use: No Substance Use Type: Reports: None Hx Tobacco Use: Yes - reports vaping Smoking Status (MU): Former Smoker Type: eCigarettes Amount Used/How Often: pt has used no tobacco products in last 30 days. Review of Systems Negative: Fever Positive: Other - positive: lacerations to left forearm and left hip Psychological: Other - positive: self harm All Other Systems Reviewed And Are Negative: Yes Physical Exam - Summary Physical Exam Summary: General: Well appearing, no distress Cardiovascular: Skin is well perfused Pulmonary: No respiratory distress, no tachypnea Abdomen: Non-distended Skin: Warm, Dry, Multiple superficial lacerations to left hip, left forearm numerous superficial lacerations with one 3cm laceration thats actively bleeding, laceration left middle finger MSK: no edema Psych: Normal affect Neuro: A&Ox3 Triage Information Reviewed: Yes Vital Signs On Initial Exam: Initial Vitals Temp Pulse Resp BP Pulse Ox 98.5 F 78 18 124/82 100 02/17/19 17:30 02/17/19 17:30 02/17/19 17:30 02/17/19 17:30 02/17/19 17:30 Vital Signs Reviewed: Yes Procedures - Laceration/Wound Repair 1 Location: upper extremity Description: Linear Length, Depth and Shape: 3 cm Laceration/Wound Explored: clean Closure: Single Layer Suture Type: Prolene - 5-0 Number of Sutures: 3 Diagnostics - Vital Signs Vital Signs Temp Pulse Resp BP Pulse Ox 02/17/19 17:30 98.5 F 78 18 124/82 100 - Laboratory Result Diagrams: 02/17/19 19:05 02/17/19 19:05 Lab Statement: Any lab studies that have been ordered have been reviewed, and results considered in the medical decision making process. Course/Dx - Course Course Of Treatment: 24-year-old female presents with self-inflicted lacerations to the left forearm left hip and left middle finger. Physical exam with multiple superficial abrasions most older than 12 hours, 1 laceration on the left forearm that is 3-4 cm long with active bleeding, we'll place sutures. Patient up to date tetanus. Will have the mental health team see her for bipolar disorder. - Differential Dx/Clinical Impression Provider Diagnosis: Bipolar disorder, manic - Physician Notifications Discussed Care Of Patient With: Marco Antonio Sepulveda Time Discussed With Above Provider: 20:29 Instructed by Provider To: Other - Per mental health veterinary receptionist, Dr. Sepulveda has decided that the patient will be a voluntary admit. Dx: manic bipolar Discharge - Sign-Out/Discharge Documenting (check all that apply): Patient Departure - admit Patient Received Moderate/Deep Sedation with Procedure: No - Discharge Plan Condition: Fair [place] [place]: Timi Rdz MD [Primary Care Provider] - - Billing Disposition and Condition Condition: FAIR [place]position[place] [facility] [place] Attestation Statements Document Initiated by Nievesibjuliet: Yes Documenting Scribe: Anthony Ribeiro Provider For Whom Nora is Documenting (Include Credential): Sade Barnes MD Scribe Attestation: Anthony Ramirez, scribed for Sade Barnes MD on 02/17/19 at 2211. Scribe Documentation Reviewed: Yes Provider Attestation: The documentation as recorded by the Anthony santos accurately reflects the service I personally performed and the decisions made by me, Sade Barnes MD Status of Scribe Document: Viewed
[2019-02-17 18:56] LABS: Urine Appearance Clear; Urine Bilirubin Negative (Negative); Urine Blood Negative (Negative); Urine Color Straw; Urine Glucose Negative (Negative); Urine Ketones Negative (Negative); Urine Nitrite Negative (Negative); Urine Protein Negative (Negative); Urine Specific Gravity 1.006 (1.010-1.030); Urine Urobilinogen Negative (Negative)
[2019-02-17 19:11] LABS: ABS Basophils 0.1 10^3/ul (0-0.2); ABS Eosinophils 0.3 10^3/ul (0-0.6); ABS Lymphocytes 2.6 10^3/ul (1.0-4.8); ABS Monocytes 0.7 10^3/ul (0-0.8); ABS Neutrophils 7.6 10^3/ul (1.5-7.7); Hematocrit 35 % (35-47); Hemoglobin 11.4 g/dL (12.0-16.0); Lymphocyte % 23.4 %; Mean Corpuscular HGB Conc 33 g/dL (31-36); Mean Corpuscular Hemoglobin 27 pg (27-31); Mean Corpuscular Volume 82 fL (80-97); Mean Platelet Volume 7.2 fL (7.4-10.4); Nucleated Red Blood Cells % 0.1; Platelet Count 333 10^3/uL (150-450); Red Blood Count 4.22 10^6 /uL (3.70-4.87); Red Cell Distribution Width 13 % (10-15); White Blood Count 11.3 10^3/uL (3.5-10.8)
[2019-02-17 19:14] LABS: Urine Benzodiazepine Screen Presumptive Positive (None Detect); Urine Opiates Screen None Detected (None Detect)
[2019-02-17] MEDS ORDERED: Lidocaine 1% INJ* 10 MG/ML 30 ML SDV INJ ONE (19:20)
[2019-02-17 19:28] LABS: ALT 12 U/L (7-52); AST 15 U/L (13-39); Albumin 4.6 g/dL (3.2-5.2); Albumin/Globulin Ratio 1.7 (1-3); Alkaline Phosphatase 43 U/L (34-104); Anion Gap 5 mmol/L (2-11); BUN/Creatinine Ratio 11.1 (8-20); Blood Urea Nitrogen 9 mg/dL (6-24); CO2 Carbon Dioxide 24 mmol/L (22-32); Calcium 9.3 mg/dL (8.6-10.3); Chloride 100 mmol/L (101-111); EGFR African American 102.6 (>60); EGFR Non-African American 84.8 (>60); Globulin 2.7 g/dL (2-4); Glucose 85 mg/dL (70-100); Potassium 3.9 mmol/L (3.5-5.0); Sodium 129 mmol/L (135-145); Total Protein 7.3 g/dL (6.4-8.9)
[2019-02-17 20:05] LABS: Acetaminophen < 15 mcg/mL; Alcohol < 10 mg/dL (<10); Salicylate < 2.50 mg/dL (<30)
[2019-02-17 20:07] LABS: TSH (Thyroid Stimulating Horm) 2.16 mcIU/mL (0.34-5.60)
[2019-02-17] MEDS ORDERED: Acetaminophen TAB* 325 MG PO PRN (22:52)
[2019-02-17] MEDS ORDERED: Al Hydrox/Mg Hydrox/Simet LIQ* 30 ML UDC PO PRN (22:52)
[2019-02-18 07:26] LABS: Cholesterol 141 mg/dL; LDL Cholesterol 60 mg/dL; Triglycerides 186 mg/dL
[2019-02-18] MEDS: Vitamin THERAPEUTIC TAB PO SCH (08:36)
[2019-02-18] MEDS: ALPRAZolam TAB* 0.5 MG PO PRN ×3 (08:36→14:17)
[2019-02-18] MEDS: Nicotine PATCH 21 MG/24 HR* PATCH TRANSDERM SCH (08:37)
[2019-02-18] MEDS ORDERED: Lithium Carbonate ER* 450 MG TAB.ER PO SCH (09:00)
[2019-02-18] MEDS ORDERED: FLUoxetine CAP* 20 MG PO SCH (09:00)
[2019-02-18] MEDS: Nicotine* 2MG (FRUIT FLAVOR) GUM PO PRN ×3 (09:42→19:07)
--- NOTE | 2019-02-18 10:18 | HP ---
H&P (Free Text) History and Physical: Justification for admission: Immediate Safety. CC " I have bipolar disorder" The patient was brought to [facility] by her boyfriend. She reported that she has been cutting herself on her arms and hip with a razor blade. She reported that her outpatient psychiatrist ( Dr. Scott) recommended that she come to the hospital. She reported compliance with medications. She reported taking everything out of her house to clean it and never putting it back, planing a grand republican, spending recklessly. She describes during her manic episodes, that on average last for a week she doesn't eat or sleep much and during her depressive episodes she sleeps and eats. Denied access to firearms or stockpiles of medications. She reported decreased sleep and appetite. The patient denied homicidal ideation intent or plan. The patient denied auditory and/ or visual hallucinations. Bipolar Reported symptoms of sebas such as having many ideas at once and increased talkativeness where no one can interrupt. She describes having so much energy that it feels that she will explode. During those times she cuts herself to prevent that feeling. She describes an increase in intensity in goal directed activities where she takes all the thing out of her house to clean them. She reported spending money recklessly , going on spending sprees and planing grand parties. MDD Reported having cycles of depression and describes increased sleep and appetite and dull an lifeless during these episodes. During those times she feels empty inside with feelings of hopelessness, and worthlessness. Anxiety Reported having times where heart feels that it is beating out of chest , sweaty palms, or shallow breathing. Psychosis Does not endorse hearing things that other people do not hear or seeing things other people do not see. Denied feeling that TV is making references. Denied feeling that people are spying , following , or reading their thoughts. Phobias: Patient denied having excessive fear of a particular thing or situation. Eating disorders: Patient denied having excessive eating habits or feelings of guilt after eating. Denied repeated episodes of self induced vomiting after eating. PTSD Denied flashbacks, nightmares and avoidance of a prior traumatic event. PAST PSYCHIATRIC HISTORY: Prior Diagnosis : Bipolar I disorder History of past Psychiatric Hospitalizations: 1 prior psychiatric admission 2017. History of past suicide/homicide attempts : Denied past suicide attempts but endorses cutting herself extensively but doesnt claim this to be a way to end her life. Denied past homicidal incidents. Outpatient follow-up: Dr Jared Roldan. Medications: Past trials of medications include zoloft, zyprexa, lithium, effexor, prozac, xanax, seroquel. She describes that zyprexa made her feel depressed and was discontinued. She reported increased frequency of sebas with prozac and zoloft. Guardianship: None. FAMILY HISTORY: - Suicide: Denied family history of suicide. - Mental illness: Mother has schizophrenia - Substance abuse: Father abuses alcohol SUBSTANCE ABUSE HISTORY: - EtOH: Denied using in the last year. Before that would binge drink to excess. - Tobacco: consumes nicotine by vapor on a daily basis - Cannabis: Denied - Heroin: Denied - Cocaine: Denied - Substance abuse treatment: Denied past substance abuse treatment SOCIAL HISTORY: Grew up in [place]. She reported having a poor relationship with her parents. She was at age 19 and 3 years later. 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 She has no children and lives in [place] with her boyfriend. - Legal history: Denied - service history: Denied PAST MEDICAL HISTORY: Denied heart disease, diabetes, cancer and/ or other medical conditions. - Allergies: Denied drug or other allergies. Physical Exam: Please see ED note Mental Status Exam on Admission APPEARANCE : 28 year old female who appears stated age. Patient is not malodourous, and appears to have fair hygiene and grooming. BEHAVIOR: Cooperative , calm EYE CONTACT: Fair PSYCHOMOTOR ACTIVITY: No psychomotor agitation or retardation. MOVEMENTS: No abnormal movements observed. SPEECH : Normal rate, rhythm, volume and tone. MOOD : "okay" AFFECT : Type is anxious, Range is restricted with shallow depth Mood Incongruent THOUGHT PROCESS: Formulated and organized in a logical, linear goal directed manner. THOUGHT CONTENT: no delusions, obsessions, phobias or preoccupations. PERCEPTION: No current auditory or visual hallucinations. Doesnt appear to be responding to internal cues. No evidence of depersonalization , de-realization, or illusions SUICIDALITY Denied suicidal ideation, intent or plan. HOMICIDALITY Denied homicidal ideation, intent or plan. Insight/judgment: Fair insight and judgment ORIENTATION: Oriented to self, location, and time. Diagnosis on Admission: Bipolar I disorder, recent manic episode. Panic disorder without agoraphobia. Assessment: 28 year old female with history of Bipolar I disorder came to the hospital after cutting her arms and was admitted to the BSU at [facility]. Plan #Admit to BSU, Q15 minute observation. Start regular diet. Encourage participation in activities on the milieu. #Patient evaluated in ED and was determined by the emergency room Physician to be medically fit for admission to the BSU. # Justification for Admission: For immediate safety per outlined in the [facility] Hygiene Code. # The patient requires psychiatric inpatient admission at this time to assure safety, receive treatment and work toward stabilization. # Labs ordered: CBC, CMP, UDS, TSH, HBA1c, TSH, Toxicology screen, Urine analysis, and lipid profile. # EKG ordered for risk of QT prolongation of antipsychotic medication. # B-HCG was ordered and results are negative. # Start latuda 20mg PO daily with food for bipolar depression # D/C prozac due to risk of increased sebas # AIMS = 0 on admission # [place] level 0.73 on admission # Increase lithium to 1200mg qhs for mood stabilization # Obtain collateral information once release is signed. # Collaboration with Operating Manager Sonia Goncalves Tobacco use disorder: nicotine supplement offered and put in place. #Goals before discharge include: Psychiatric stabilization. Tentative Discharge: Pending psychiatric stabilization The risks, benefits, and alternative treatment options were discussed as well as the risks of refusing treatment. After this discussion and an acknowledgement of this understanding was made. A risk/ benefit assessment of treatment was considered and discussed with the patient. When comparing the risks of treatment with the dangers of not receiving treatment, the benefits of treatment outweigh the treatment risks at this time. Risks of allergy, suicidal ideation, behavioral changes, dystonia, rashes, electrolyte imbalances, movement disorders, cardiac conduction changes, serotonin syndrome, metabolic risks and NMS were among some of the risks discussed. Acetaminophen (Tylenol Tab*) 650 mg PO Q4H PRN PRN Reason: PAIN or TEMP > 101 F Al Hydrox/Mg Hydrox/Simethicone (Maalox Plus*) 30 ml PO Q4H PRN PRN Reason: INDIGESTION Alprazolam (Xanax Tab*) 1 mg PO TID PRN PRN Reason: ANXIETY Last Admin: 02/18/19 08:36 Dose: 1 mg [place] Carbonate ([place] Carbonate Er (Nf)) 1,200 mg PO BEDTIME CHANTAL [place] Carbonate ([place] Carbonate Tab*) 300 mg PO ONCE ONE Stop: 02/18/19 21:01 Lurasidone HCl (Latuda) 20 mg PO 1700 CHANTAL Multivitamins (Theragran Tab*) 1 tab PO DAILY CHANTAL Last Admin: 02/18/19 08:36 Dose: 1 tab Nicotine (Nicotine Patch 21 Mg/24 Hr*) 1 patch TRANSDERM DAILY CHANTAL Last Admin: 02/18/19 08:37 Dose: 1 patch Nicotine Polacrilex (Nicotine Gum*) 2 mg PO Q2H PRN PRN Reason: CRAVINGS Last Admin: 02/18/19 09:42 Dose: 2 mg Pharmacy Profile Note (Nicotine Patch Removal Note*) 1 note PATCH OFF [facility] Quetiapine Fumarate (Seroquel Tab*) 100 mg PO DAILY PRN PRN Reason: MANIC Last Admin: 02/18/19 00:00 Dose: 100 mg Sodium 129 mmol/L (135-145) L 02/17/19 19:05 Potassium 3.9 mmol/L (3.5-5.0) 02/17/19 19:05 BUN 9 mg/dL (6-24) 02/17/19 19:05 Creatinine 0.81 mg/dL (0.51-0.95) 02/17/19 19:05 Hemoglobin A1c 5.2 % (4.0-5.6) 02/18/19 06:53 Calcium 9.3 mg/dL (8.6-10.3) 02/17/19 19:05 AST 15 U/L (13-39) 02/17/19 19:05 ALT 12 U/L (7-52) 02/17/19 19:05 Triglycerides 186 mg/dL 02/18/19 06:53 Cholesterol 141 mg/dL 02/18/19 06:53 LDL Cholesterol 60 mg/dL 02/18/19 06:53
[2019-02-18 10:31] LABS: HCG Pregnancy < 0.60 mIU/mL
[2019-02-18 10:40] LABS: Lithium 0.73 mmol/L (0.6-1.2)
[2019-02-18] MEDS: Lurasidone(*) 20 MG TAB PO SCH (18:26)
[2019-02-18] MEDS: QUEtiapine TAB* 100 MG PO PRN ×2 (20:31)
[2019-02-18] MEDS ORDERED: Lithium Carbonate TAB* 300 MG PO ONE (21:00)
[2019-02-18] MEDS: Nicotine Patch Removal NOTE PATCH OFF SCH (21:03)
[2019-02-19] MEDS: ALPRAZolam TAB* 0.5 MG PO PRN ×4 (04:00→19:14)
[2019-02-19] MEDS: Nicotine* 2MG (FRUIT FLAVOR) GUM PO PRN ×4 (04:02→16:19)
[2019-02-19] MEDS: Vitamin THERAPEUTIC TAB PO SCH (08:36)
[2019-02-19] MEDS: Nicotine PATCH 21 MG/24 HR* PATCH TRANSDERM SCH (08:37)
--- NOTE | 2019-02-19 14:16 | PN ---
Subjective - Subjective Date of Service: 02/19/19 Service Type: 25658 Hosp care 35 min high complexity Subjective: Nursing Report: Patient was visible on unit, no chemical restraints or PRNs. Slept overnight without incident. Attending group activities. CC: "Fine Patient was seen and evaluated today in the common room. The patient reported she feels safe on the unit and is interacting with peers. She reported having an adequate appetite and sleep. The patient reports attending and participating in day groups. Per nursing no behavioral issues or overnight events reported. Patient reported that she is tolerating medications without side effects. Collateral information was obtained from her boyfriend Clayton who suggested that she is not ready for discharge. He expressed that she is not ready because she expressed suicidal ideation last week and has been taking Xanax pills in excessive quantities and has been cutting herself. Objective - General Observations Appearance: Disheveled Stature: WNL Posture: WNL Eye Contact: Average Behavior/Activity: WNL - Interaction Observations Attitude Towards Examiner: Cooperative Stated Mood: Euthymic Affect: Blunted Speech Pattern/Tone: Clear Thought Process: Coherent Perception: WNL Thought Content: Preoccupation/Ruminations Hallucination Type: None Delusion Type: None - Cognitive Function Orientation: A&O x 4 Level of Consciousness: Awake - Medication Compliance Cooperative with Inpatient Medication Regimen: Yes - Group Participation Participates in Group Activities: Yes Assessment - Assessment Merits Inpatient Hospitalization: For Immediate Safety Clinical Impression: 28 year old female with history of Bipolar I disorder came to the hospital after cutting her arms and was admitted to the BSU at [facility]. Plan - Plan Treatment Plan: Name: JOCELIN KIRKPATRICK Birthdate: 1990 [id number] #Q30 minute observation with staff pass # The patient requires psychiatric inpatient admission at this time to assure safety, receive treatment and work toward stabilization. # B-HCG was ordered and results are negative. # Continue latuda 20mg PO daily with food for bipolar depression # [place] level 0.73 # Continue lithium to 1200mg qhs for mood stabilization # Obtained collateral information from her boyfriend Clayton who suggested that she is not ready for discharge # Collaboration with Director Dermatology Sonia Goncalves # 72 hour notice retracted Tobacco use disorder: nicotine supplement offered and put in place. #Goals before discharge include: Psychiatric stabilization. Tentative Discharge: Friday Sodium 136 mmol/L (135-145) 02/19/19 09:56 Potassium 3.9 mmol/L (3.5-5.0) 02/17/19 19:05 BUN 9 mg/dL (6-24) 02/17/19 19:05 Creatinine 0.81 mg/dL (0.51-0.95) 02/17/19 19:05 Hemoglobin A1c 5.2 % (4.0-5.6) 02/18/19 06:53 Calcium 9.3 mg/dL (8.6-10.3) 02/17/19 19:05 AST 15 U/L (13-39) 02/17/19 19:05 ALT 12 U/L (7-52) 02/17/19 19:05 Triglycerides 186 mg/dL 02/18/19 06:53 Cholesterol 141 mg/dL 02/18/19 06:53 LDL Cholesterol 60 mg/dL 02/18/19 06:53 Vital Signs Temp Pulse Resp BP Pulse Ox 97.4 F 76 16 113/76 100 02/19/19 08:08 02/19/19 08:08 02/19/19 14:24 02/19/19 08:08 02/19/19 08:08 Continued Medication Management: Continue Outpt Medication Medications: Current Medications Acetaminophen (Tylenol Tab*) 650 mg PO Q4H PRN PRN Reason: PAIN or TEMP > 101 F Al Hydrox/Mg Hydrox/Simethicone (Maalox Plus*) 30 ml PO Q4H PRN PRN Reason: INDIGESTION Alprazolam (Xanax Tab*) 1 mg PO TID PRN PRN Reason: ANXIETY Last Admin: 02/19/19 04:00 Dose: 1 mg [place] Carbonate ([place] Carbonate Er (Nf)) 1,200 mg PO BEDTIME [facility] Lurasidone HCl (Latuda) 20 mg PO 1700 [facility] Last Admin: 02/18/19 18:26 Dose: 20 mg Multivitamins (Theragran Tab*) 1 tab PO DAILY [facility] Last Admin: 02/19/19 08:36 Dose: 1 tab Nicotine (Nicotine Patch 21 Mg/24 Hr*) 1 patch TRANSDERM DAILY [facility] Last Admin: 02/19/19 08:37 Dose: 1 patch Nicotine Polacrilex (Nicotine Gum*) 2 mg PO Q2H PRN PRN Reason: CRAVINGS Last Admin: 02/19/19 12:39 Dose: 2 mg Pharmacy Profile Note (Nicotine Patch Removal Note*) 1 note PATCH OFF 2100 [facility]ANTAL Last Admin: 02/18/19 21:03 Dose: 1 note Quetiapine Fumarate (Seroquel Tab*) 100 mg PO DAILY PRN PRN Reason: MANIC Last Admin: 02/18/19 20:31 Dose: 100 mg - Discharge Plan Discharge Plan: Inpatient Hospitalization
[2019-02-19] MEDS: Lurasidone(*) 20 MG TAB PO SCH (19:15)
[2019-02-19] MEDS: Nicotine Patch Removal NOTE PATCH OFF SCH (20:24)
[2019-02-19] MEDS: QUEtiapine TAB* 100 MG PO PRN (20:24)
[2019-02-19] MEDS: CMCS: Lithium Carbonate ER (NF) 300 MG TAB.ER PO SCH (20:24)
[2019-02-20] MEDS: Nicotine PATCH 21 MG/24 HR* PATCH TRANSDERM SCH (07:40)
[2019-02-20] MEDS: Nicotine* 2MG (FRUIT FLAVOR) GUM PO PRN ×5 (07:41→19:12)
[2019-02-20] MEDS: ALPRAZolam TAB* 0.5 MG PO PRN ×3 (07:41→19:11)
[2019-02-20] MEDS: Vitamin THERAPEUTIC TAB PO SCH (07:41)
--- NOTE | 2019-02-20 12:05 | PN ---
Subjective - Subjective Date of Service: 02/20/19 Service Type: 98386 Hosp care 15 min low complexity Subjective: Jocelin is seen in weekend coverage for Dr. Butler. She reports that she had an anxiety attack this morning during a group due to a triggering subject being brought up. She's upset that she cannot utilize her prn alprazolam because she had a dose this morning and it can't be used again until 1500. Other than this she feels like things are improving and that she tolerating the changes in her medications well. She denies SI and is hopeful for discharge on Friday, (02/22). Objective - General Observations Appearance: Well Groomed Appears Stated Age: Yes Stature: WNL Posture: WNL Eye Contact: Average Behavior/Activity: WNL - Interaction Observations Attitude Towards Examiner: Cooperative Stated Mood: Anxious Affect: Full Speech Pattern/Tone: Clear, Appropriate, Normal Volume Thought Process: Coherent Perception: WNL Thought Content: WNL Hallucination Type: None Delusion Type: None - Cognitive Function Orientation: A&O x 4 Level of Consciousness: Awake, Alert, Appropriate Cognition: WNL Estimated Intelligence: Normal Insight: WNL Judgment Within Normal Limits: Yes - Medication Compliance Cooperative with Inpatient Medication Regimen: Yes - Group Participation Participates in Group Activities: Yes Assessment - Assessment Merits Inpatient Hospitalization: Consolidate Improvements, Pending Safe DC Plan Inpatient DSM-V Dx: F31.9 Clinical Impression: 28 year old female with history of Bipolar I disorder came to the hospital after cutting her arms and was admitted to the BSU at [facility]. BSU: Problem List - Patient Problems (1) Bipolar depression Current Visit: Yes Status: Acute Priority: High Code(s): F31.9 - BIPOLAR DISORDER, UNSPECIFIED SNOMED Code(s): 599356515 Plan - Plan Treatment Plan: Name: JOCELIN KIRKPATRICK Birthdate: 1990 [id number] #Q30 minute observation with staff pass # The patient requires psychiatric inpatient admission at this time to assure safety, receive treatment and work toward stabilization. # B-HCG was ordered and results are negative. # Continue latuda 20mg PO daily with food for bipolar depression # [place] level 0.73 # Continue lithium to 1200mg qhs for mood stabilization # Obtained collateral information from her boyfriend Clayton who suggested that she is not ready for discharge # Collaboration with Heat Regulator Sonia Goncalves # 72 hour notice retracted Tobacco use disorder: nicotine supplement offered and put in place. #Goals before discharge include: Psychiatric stabilization. Tentative Discharge: Friday Sodium 136 mmol/L (135-145) 02/19/19 09:56 Potassium 3.9 mmol/L (3.5-5.0) 02/17/19 19:05 BUN 9 mg/dL (6-24) 02/17/19 19:05 Creatinine 0.81 mg/dL (0.51-0.95) 02/17/19 19:05 Hemoglobin A1c 5.2 % (4.0-5.6) 02/18/19 06:53 Calcium 9.3 mg/dL (8.6-10.3) 02/17/19 19:05 AST 15 U/L (13-39) 02/17/19 19:05 ALT 12 U/L (7-52) 02/17/19 19:05 Triglycerides 186 mg/dL 02/18/19 06:53 Cholesterol 141 mg/dL 02/18/19 06:53 LDL Cholesterol 60 mg/dL 02/18/19 06:53 Vital Signs Temp Pulse Resp BP Pulse Ox 97.4 F 76 16 113/76 100 02/19/19 08:08 02/19/19 08:08 02/19/19 14:24 02/19/19 08:08 02/19/19 08:08 Continued Medication Management: Different Medication Medications: Current Medications Acetaminophen (Tylenol Tab*) 650 mg PO Q4H PRN PRN Reason: PAIN or TEMP > 101 F Al Hydrox/Mg Hydrox/Simethicone (Maalox Plus*) 30 ml PO Q4H PRN PRN Reason: INDIGESTION Alprazolam (Xanax Tab*) 1 mg PO TID PRN PRN Reason: ANXIETY Last Admin: 02/20/19 07:41 Dose: 1 mg Hydroxyzine HCl (Atarax Tab*) 50 mg PO Q6H PRN PRN Reason: anxiety [place] Carbonate ([place] Carbonate Er (Nf)) 1,200 mg PO BEDTIME [facility] Last Admin: 02/19/19 20:24 Dose: 1,200 mg Lurasidone HCl (Latuda) 20 mg PO 1700 CHANTAL Last Admin: 02/19/19 19:15 Dose: 20 mg Multivitamins (Theragran Tab*) 1 tab PO DAILY [facility] Last Admin: 02/20/19 07:41 Dose: 1 tab Nicotine (Nicotine Patch 21 Mg/24 Hr*) 1 patch TRANSDERM DAILY [facility] Last Admin: 02/20/19 07:40 Dose: 1 patch Nicotine Polacrilex (Nicotine Gum*) 2 mg PO Q2H PRN PRN Reason: CRAVINGS Last Admin: 02/20/19 11:08 Dose: 2 mg Pharmacy Profile Note (Nicotine Patch Removal Note*) 1 note PATCH OFF 2099 [facility] Last Admin: 02/19/19 20:24 Dose: 1 note Quetiapine Fumarate (Seroquel Tab*) 100 mg PO DAILY PRN PRN Reason: MANIC Last Admin: 02/19/19 20:24 Dose: 100 mg - Discharge Plan Discharge Plan: Inpatient Hospitalization
[2019-02-20] MEDS: hydrOXYzine HCL TAB* 50 MG PO PRN (12:10)
[2019-02-20] MEDS: Lurasidone(*) 20 MG TAB PO SCH (17:57)
[2019-02-20] MEDS: Nicotine Patch Removal NOTE PATCH OFF SCH ×2 (17:58→22:03)
[2019-02-20] MEDS: CMCS: Lithium Carbonate ER (NF) 300 MG TAB.ER PO SCH (20:35)
[2019-02-21] MEDS: Vitamin THERAPEUTIC TAB PO SCH (08:43)
[2019-02-21] MEDS: Nicotine PATCH 21 MG/24 HR* PATCH TRANSDERM SCH (08:44)
[2019-02-21] MEDS: ALPRAZolam TAB* 0.5 MG PO PRN ×3 (08:45→20:30)
[2019-02-21] MEDS: Nicotine* 2MG (FRUIT FLAVOR) GUM PO PRN ×4 (10:03→21:18)
[2019-02-21] MEDS: hydrOXYzine HCL TAB* 50 MG PO PRN ×2 (12:48→19:17)
[2019-02-21] MEDS: Lurasidone(*) 20 MG TAB PO SCH (17:26)
[2019-02-21] MEDS: CMCS: Lithium Carbonate ER (NF) 300 MG TAB.ER PO SCH (20:29)
[2019-02-21] MEDS: QUEtiapine TAB* 100 MG PO PRN (20:29)
[2019-02-21] MEDS: Nicotine Patch Removal NOTE PATCH OFF SCH (20:32)
[2019-02-22] MEDS: Vitamin THERAPEUTIC TAB PO SCH (08:11)
[2019-02-22] MEDS: Nicotine PATCH 21 MG/24 HR* PATCH TRANSDERM SCH (08:12)
[2019-02-22] MEDS: ALPRAZolam TAB* 0.5 MG PO PRN ×2 (08:14→11:52)
[2019-02-22] MEDS: hydrOXYzine HCL TAB* 50 MG PO PRN (10:36)
[2019-02-22] MEDS: Nicotine* 2MG (FRUIT FLAVOR) GUM PO PRN (10:36)
--- NOTE | 2019-02-22 11:11 | DS ---
Subjective - Subjective Service Types: [address] [facility] Day Mgmt complex over 30 min Discharge Date: 02/22/19 Subjective: CC: " I am better" Patient looks forward to going back to work and seeing her pets. The patient was seen and evaluated before discharge today. The patient reported having adequate appetite and sleep. The patient reports attending and participating in day groups. Per nursing no behavioral issues or overnight events reported. Patient reported tolerating medications without side effects. Her brother visited over the weekend. Patient reported being happy that her brother came to visit her over the weekend. Justification for admission: Immediate Safety. CC " I have bipolar disorder" The patient was brought to [facility] by her boyfriend. She reported that she has been cutting herself on her arms and hip with a razor blade. She reported that her outpatient psychiatrist ( Dr. Roldan.) recommended that she come to the hospital. She reported compliance with medications. She reported taking everything out of her house to clean it and never putting it back, planing a grand alliance party, spending recklessly. She describes during her manic episodes, that on average last for a week she doesn't eat or sleep much and during her depressive episodes she sleeps and eats. Denied access to firearms or stockpiles of medications. She reported decreased sleep and appetite. The patient denied homicidal ideation intent or plan. The patient denied auditory and/ or visual hallucinations. Bipolar Reported symptoms of sebas such as having many ideas at once and increased talkativeness where no one can interrupt. She describes having so much energy that it feels that she will explode. During those times she cuts herself to prevent that feeling. She describes an increase in intensity in goal directed activities where she takes all the thing out of her house to clean them. She reported spending money recklessly , going on spending sprees and planing grand parties. MDD Reported having cycles of depression and describes increased sleep and appetite and dull an lifeless during these episodes. During those times she feels empty inside with feelings of hopelessness, and worthlessness. Anxiety Reported having times where heart feels that it is beating out of chest , sweaty palms, or shallow breathing. Psychosis Does not endorse hearing things that other people do not hear or seeing things other people do not see. Denied feeling that TV is making references. Denied feeling that people are spying , following , or reading their thoughts. Phobias: Patient denied having excessive fear of a particular thing or situation. Eating disorders: Patient denied having excessive eating habits or feelings of guilt after eating. Denied repeated episodes of self induced vomiting after eating. PTSD Denied flashbacks, nightmares and avoidance of a prior traumatic event. PAST PSYCHIATRIC HISTORY: Prior Diagnosis : Bipolar I disorder History of past Psychiatric Hospitalizations: 1 prior psychiatric admission 2017. History of past suicide/homicide attempts : Denied past suicide attempts but endorses cutting herself extensively but doesnt claim this to be a way to end her life. Denied past homicidal incidents. Outpatient follow-up: Dr Jared Roldan. Medications: Past trials of medications include zoloft, zyprexa, lithium, effexor, prozac, xanax, seroquel. She describes that zyprexa made her feel depressed and was discontinued. She reported increased frequency of sebas with prozac and zoloft. Guardianship: None. FAMILY HISTORY: - Suicide: Denied family history of suicide. - Mental illness: Mother has schizophrenia - Substance abuse: Father abuses alcohol SUBSTANCE ABUSE HISTORY: - EtOH: Denied using in the last year. Before that would binge drink to excess. - Tobacco: consumes nicotine by vapor on a daily basis - Cannabis: Denied - Heroin: Denied - Cocaine: Denied - Substance abuse treatment: Denied past substance abuse treatment SOCIAL HISTORY: Grew up in [place]. She reported having a poor relationship with her parents. She was at age 19 and 3 years later. 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 She has no children and lives in [place] with her boyfriend. - Legal history: Denied - service history: Denied PAST MEDICAL HISTORY: Denied heart disease, diabetes, cancer and/ or other medical conditions. - Allergies: Denied drug or other allergies. Physical Exam: Please see ED note Mental Status Exam on Admission APPEARANCE : 28 year old female who appears stated age. Patient is not malodourous, and appears to have fair hygiene and grooming. BEHAVIOR: Cooperative , calm EYE CONTACT: Fair PSYCHOMOTOR ACTIVITY: No psychomotor agitation or retardation. MOVEMENTS: No abnormal movements observed. SPEECH : Normal rate, rhythm, volume and tone. MOOD : "okay" AFFECT : Type is anxious, Range is restricted with shallow depth Mood Incongruent THOUGHT PROCESS: Formulated and organized in a logical, linear goal directed manner. THOUGHT CONTENT: no delusions, obsessions, phobias or preoccupations. PERCEPTION: No current auditory or visual hallucinations. Doesnt appear to be responding to internal cues. No evidence of depersonalization , de-realization, or illusions SUICIDALITY Denied suicidal ideation, intent or plan. HOMICIDALITY Denied homicidal ideation, intent or plan. Insight/judgment: Fair insight and judgment ORIENTATION: Oriented to self, location, and time. Diagnosis on Admission: Bipolar I disorder, recent manic episode. Panic disorder without agoraphobia. Diagnosis on Discharge: Bipolar I disorder, in partial remission. Anxiolytic use disorder. Tobacco use disorder. Condition at the time of discharge: At the time of discharge patient showed improvement of sleep and appetite. The patient was not a danger to self or others. The patient denied suicidal ideation, intent or plan. The patient denied homicidal targets, ideation, intent or plan. This patient participated in psychosocial rehabilitation and gained some insight into problems. The patient gained insight into mental illness, triggers, and treatment. The patient took medication as prescribed. The patient denied side effects of medication and objective signs of side effects were not evident. Therapy Resources were offered to the patient. Patient was given a supply of prescriptions at the time of discharge. The patient plans to attend follow up care with the follow up arrangements that were discussed and put in place. Patient was asked to keep appointments as scheduled, take medication as prescribed, have routine follow up care with their primary care physician and refrain from any use of alcohol or drugs. Objective - General Observations Appearance: Neat Appears Stated Age: Yes Stature: WNL Posture: WNL Eye Contact: Average Behavior/Activity: WNL - Interaction Observations Attitude Towards Examiner: Cooperative Stated Mood: Euthymic Affect: Full Speech Pattern/Tone: Clear Thought Process: Coherent Perception: WNL Thought Content: WNL Hallucination Type: None Delusion Type: None - Cognitive Function Orientation: A&O x 4 Level of Consciousness: Awake - Medication Compliance Cooperative with Inpatient Medication Regimen: Yes - Group Participation Participates in Group Activities: Yes Treatment Course & Assessment Clinical Course & Impression: Hospital course part A: 28 year old female with history of Bipolar I disorder came to the hospital after cutting her arms and was admitted to the BSU at [facility]. Hospital course part B: Labs ordered included CBC, CMP, UDS, TSH, HBA1c, TSH, Toxicology screen, Urine analysis, and lipid profile. Labs were reviewed and did not require the need for further evaluation. Vital signs were monitored during the course of admission. EKG ordered for risk of QT prolongation of antipsychotic medication. EKG was reviewed and no abnormal findings were present The patient was admitted to the adult behavioral unit and placed on 15 minute check for safety. At a later time the patient was on Q30 minute observation and staff pass privileges. With those limits being extended, patient was safe on all checks and there were no occurrence of behavioral incidents. The patient did well on the unit and went to groups. Interacted with peers had adequate sleep and regular appetite. Tolerated medication changes without side effects. Group therapy and services were offered. The risks, benefits, and alternative treatment options were discussed as well as of the risks of refusing treatment. Treatment associated risks discussed. After this discussion made an acknowledgement of this understanding. Follow up care appointments were put in place for follow up care. The importance of monitoring for metabolic changes was discussed and acknowledgement of this understanding was made. Patient informed not to abruptly stop or start new medications before consulting with a medical professional. Improvements in patient from the time of admission include: Improved affect, sleep and decrease in anxiety. No longer suicidal and no longer having feelings of hopelessness. The patient expressed readiness for discharge home. The patient presents with a broader range of affect, and the absence of depressed mood, delusions, perceptual disturbances. The patient denied suicidal and or homicidal ideation intent or plan. Overall, the patient responded well to inpatient treatment as evidenced by their report of strengthening of coping mechanisms, reduced distress, and more positive outlook on circumstances. Of note there was an improvement of recognizing how emotional state can effect mood and behavior. Safety precautions were put in place which included involving the patient and their family to closely monitor for changes in mental state. In addition, implementing follow up care, screening for the need to remove/securing firearms , weapons and stockpile of medications. Patient/ family instructed to immediately call 911 should any safety concerns arise. ORAL HEALTH THERAPIST was checked and verified dose of xanax. Patient advised of the lethality and dangerousness of combining medications with pain medications and/ or with alcohol and acknowledged this understanding. Controlled substances were not provided upon discharge as the patient has a history of abusing them which increases the likelihood of her presenting a harm to herself. AIMS was performed and insignificant for involuntary movement disorders. B-HCG is negative for current . She was informed of the risks associated with medication in . In the event that she becomes in the future and was advised to talk with her outpatient healthcare provider about starting or stopping medications during . The patient was advised of the 24 hour / 7 days a week availability of the emergency room and to call 911 in the event of an emergency such as being suicidal and/ or homicidal. The patient was informed of the contact information for [facility], Suicide Prevention and Crisis Services, National Suicide Prevention Lifeline, [facility], Alcoholics Anonymous, and [facility]. [place] level was and within normal limits. She tolerated medications and were advised about the importance of monitoring medication levels after leaving the hospital and the interactions with other medications lithium can have. Medications started included latuda 20mg daily for bipolar depression and increased lithium to 1200mg qhs for sebas. D/C prozac due to risk of increased sebas [place] level 0.73 on admission. Patient was on two anti-psychotics ( seroquel and latuda) because she is currently being stabilized and this combination helped with her sleep cycle. She plans to be titrated to mono therapy. She was advised of the addiction potential with xanax and the link between cutting herself and using excessive amounts of xanax were discussed. She plans to go to substance abuse outpatient treatment at drug and alcohol treatment. She has a adequate supply of medications at home and did not require a refill upon discharge other than for the increase in lithium. She plans to receive latuda next month due to insurance and cost reasons, other alternatives were offered and she declined. Patients boyfriend was contacted and is upset about her lack of acknowledgement of xanax abuse. She reported that she plans to address this by going to drug and alcohol counseling in the outpatient setting. Contacting collateral sources took place before discharge. At this time the patient is eager for discharge and are in agreement with the discharge plan set forth by the treatment team and can safely receive care in the less restrictive outpatient setting. She was advised on how the days following discharge can be a vulnerable period and to look out for warning signs associated with decompensation and progression of mental illness. She was notified of the resources available in the event these situations arise and confirmed that the patient has no access to firearms or stock piles of medications. Patient was not assaultive or a behavioral problem during the course of admission. The patient showed improvement of hygiene and was able to carry out activities of daily living. Patient will be discharged to live at home. Follow up appointment at [facility] Patient informed of follow up appointment times. See more details for follow up care in the discharge plan. Risk factors were mitigated by establishing the patients baseline with close contacts. Implementing precautionary safety measures by confirming no stockpiles of medications and no access to firearms , providing mental health treatment, offering substance abuse resources, substance abuse therapy groups, stabilization of manic features, arrangement of outpatient continuation of care, as well as provided a supportive care environment and therapy resources during the course of hospitalization. Risk factors: , single, Dx. bipolar I disorder. Recent relationship changes. History of substance abuse. Unclear prior suicide attempt Protective factors: Currently no suicidal ideation, intent or plan. Has social/ family support system. No history of service. Currently no feelings of hopelessness, not in an occupation of social isolation, doesnt have multiple medical conditions, no family history of suicide, doesnt have access to firearms. Doesnt have command hallucinations and or psychotic features at this time. No current alcohol abuse. Not an anniversary of a loss of a loved one. Currently future orientated. Patient engaged in treatment and compliant with medication. Sodium 136 mmol/L (135-145) 02/19/19 09:56 Potassium 3.9 mmol/L (3.5-5.0) 02/17/19 19:05 BUN 9 mg/dL (6-24) 02/17/19 19:05 Creatinine 0.81 mg/dL (0.51-0.95) 02/17/19 19:05 Hemoglobin A1c 5.2 % (4.0-5.6) 02/18/19 06:53 Calcium 9.3 mg/dL (8.6-10.3) 02/17/19 19:05 AST 15 U/L (13-39) 02/17/19 19:05 ALT 12 U/L (7-52) 02/17/19 19:05 Triglycerides 186 mg/dL 02/18/19 06:53 Cholesterol 141 mg/dL 02/18/19 06:53 LDL Cholesterol 60 mg/dL 02/18/19 06:53 Vital Signs Temp Pulse Resp BP Pulse Ox 98.2 F 80 16 107/65 100 02/22/19 08:00 02/22/19 08:00 02/22/19 11:52 02/22/19 08:00 02/22/19 08:00 Merits Inpatient Hospitalization: No Clear for Discharge: Adequate Clinical Respons Inpatient DSM-V Dx: F31.9 Discharge Planning - Discharge Planning Discharge Plan: Outpatient Follow Up Outpatient [facility]: [facility] Recommendations for Continuing Care: Medication Management Medications: Current Medications Acetaminophen (Tylenol Tab*) 650 mg PO Q4H PRN PRN Reason: PAIN or TEMP > 101 F Al Hydrox/Mg Hydrox/Simethicone (Maalox Plus*) 30 ml PO Q4H PRN PRN Reason: INDIGESTION Alprazolam (Xanax Tab*) 1 mg PO TID PRN PRN Reason: ANXIETY Last Admin: 02/22/19 08:14 Dose: 1 mg Hydroxyzine HCl (Atarax Tab*) 50 mg PO Q6H PRN PRN Reason: anxiety Last Admin: 02/22/19 10:36 Dose: 50 mg [place] Carbonate ([place] Carbonate Er (Nf)) 1,200 mg PO BEDTIME [facility] Last Admin: 02/21/19 20:29 Dose: 1,200 mg Lurasidone HCl (Latuda) 20 mg PO 1700 [facility]ANTAL Last Admin: 02/21/19 17:26 Dose: 20 mg Multivitamins (Theragran Tab*) 1 tab PO DAILY [facility] Last Admin: 02/22/19 08:11 Dose: 1 tab Nicotine (Nicotine Patch 21 Mg/24 Hr*) 1 patch TRANSDERM DAILY [facility] Last Admin: 02/22/19 08:12 Dose: 1 patch Nicotine Polacrilex (Nicotine Gum*) 2 mg PO Q2H PRN PRN Reason: CRAVINGS Last Admin: 02/22/19 10:36 Dose: 2 mg Pharmacy Profile Note (Nicotine Patch Removal Note*) 1 note PATCH OFF 2099 [facility] Last Admin: 02/21/19 20:32 Dose: 1 note Quetiapine Fumarate (Seroquel Tab*) 100 mg PO DAILY PRN PRN Reason: MANIC Last Admin: 02/21/19 20:29 Dose: 100 mg Discharge Planning: Prescriptions provided for discharge [x] Yes [] No Follow up care details as per social work arrangements. Patient response to discharge plan: [x] eager for discharge [] agreeable with discharge plan [] ambivalent about discharge [] disagrees with discharge today
[2019-02-22 12:00] VITALS: BP 107/65
== END 2019-02-22 12:30 | disposition home or self-care (01) | DRG 885 ==
LOC: ED 17:28 → BSU 20:41
PROVIDERS: ADMIT Psychiatry & Neurology Psychiatry; ATTEND Psychiatry & Neurology Psychiatry
PROC: 0HQEXZZ Repair Left Lower Arm Skin, External Approach (ICD-10-PCS; principal; 2019-02-17)
DX: F31.10 Bipolar disorder, current episode manic without psychotic features, unspecified (principal); R45.851 Suicidal ideations; F41.0 Panic disorder [episodic paroxysmal anxiety]; S51.812A Laceration without foreign body of left forearm, initial encounter; X78.9XXA Intentional self-harm by unspecified sharp object, initial encounter; F17.290 Nicotine dependence, other tobacco product, uncomplicated; Y92.9 Unspecified place or not applicable; Z81.1 Family history of alcohol abuse and dependence; Z81.8 Family history of other mental and behavioral disorders
CPT/HCPCS: 36415; 80053; 80061; 80178; 80307; 80320; 80329; 81003; 83036; 83930; 84300; 84443; 84702; 85025; 99222; 99231; 99233; 99238; 99284; A9270-GY; G0480